=== PATIENT | female | born 1970 | race Caucasian/White ===

== ENCOUNTER → 2017-05-26 | Outpatient (CLI) | payer BC ==
--- NOTE | 2017-05-26 11:21 | RADIOLOGY REPORT (SQ) ---
EXAM DESCRIPTION: CERV SP 4 OR 5 VIEWS; EMPLOYEE COMPLETED DATE/TIME: 05/26/2017 11:14 am REASON FOR STUDY: LBP RADICULOPATHY; C AND L PAIN COMPARISON: None. NUMBER OF VIEWS: Five views. TECHNIQUE: AP, lateral, obliques and odontoid radiographic images acquired of the cervical spine. LIMITATIONS: None. FINDINGS: There is grade 1 anterolisthesis of C5 relative to C6. There is disc space narrowing and osteophyte formation C6-7. Mild neural foraminal narrowing bilaterally at C6- 7. Prevertebral soft tissues are normal. IMPRESSION: Cervical disc disease. Mild malalignment. TECHNICAL DOCUMENTATION: JOB ID: [id number] [employer]- All Rights Reserved
--- NOTE | 2017-05-26 11:21 | RADIOLOGY REPORT (SQ) ---
EXAM DESCRIPTION: CERV SP 4 OR 5 VIEWS; EMPLOYEE COMPLETED DATE/TIME: 05/26/2017 11:14 am REASON FOR STUDY: LBP RADICULOPATHY; C AND L PAIN COMPARISON: None. NUMBER OF VIEWS: Five views. TECHNIQUE: AP, lateral, obliques and odontoid radiographic images acquired of the cervical spine. LIMITATIONS: None. FINDINGS: There is grade 1 anterolisthesis of C5 relative to C6. There is disc space narrowing and osteophyte formation C6-7. Mild neural foraminal narrowing bilaterally at C6- 7. Prevertebral soft tissues are normal. IMPRESSION: Cervical disc disease. Mild malalignment. TECHNICAL DOCUMENTATION: JOB ID: [id number] [employer]- All Rights Reserved
--- NOTE | 2017-05-26 11:22 | RADIOLOGY REPORT (SQ) ---
EXAM DESCRIPTION: L SPINE WHOLE COMPLETED DATE/TIME: 05/26/2017 11:14 am REASON FOR STUDY: LBP RADICULOPATHY COMPARISON: None. NUMBER OF VIEWS: Five views including obliques. TECHNIQUE: AP, lateral, oblique, and sacral radiographic images acquired of the lumbar spine. LIMITATIONS: None. FINDINGS: MINERALIZATION: Normal. SEGMENTATION: Normal. No transitional anatomy. ALIGNMENT: Normal. VERTEBRAE: Maintained height. No fracture or worrisome bone lesion. DISCS: Preserved height. No significant osteophytes or end plate irregularity. POSTERIOR ELEMENTS: Pedicles and facets are intact. No pars defect or posterior arch defects. HARDWARE: None in the spine. PARASPINAL SOFT TISSUES: Normal. PELVIS: Intact as visualized. No fractures or worrisome bone lesions. SI joints intact. OTHER: No other significant finding. IMPRESSION: NORMAL 5 VIEW LUMBAR SPINE. TECHNICAL DOCUMENTATION: JOB ID: [id number] [employer]- All Rights Reserved
== END ==
LOC: RAD 10:44
PROVIDERS: ATTEND Nurse Practitioner Primary Care
DX: M50.823 Other cervical disc disorders at C6-C7 level (principal); M54.5 Low back pain; M54.10 Radiculopathy, site unspecified
CPT/HCPCS: 72050; 72110

== ENCOUNTER → 2017-06-20 | Outpatient (CLI) | payer BC ==
[2017-06-20 11:02] LABS: HEMATOCRIT 37.9 % (36.0-47.0); HEMOGLOBIN 12.6 g/dL (12.0-15.5); MEAN CORPUSCULAR HEMOGLOBIN 29.4 pg (27.0-33.4); MEAN CORPUSCULAR HGB CONC 33.3 g/dL (32.0-36.0); MEAN CORPUSCULAR VOLUME 88 fl (80-97); PLATELET COUNT 265 10^3/uL (150-450); RED CELL DISTRIBUTION WIDTH 14.9 % (11.5-14.0); WHITE BLOOD COUNT 5.1 10^3/uL (4.0-10.5)
[2017-06-20 11:27] LABS: ALANINE AMINOTRANSFERASE 25 U/L (9-52); ALBUMIN 4.2 g/dL (3.5-5.0); ALKALINE PHOSPHATASE 36 U/L (38-126); ANION GAP 8 (5-19); ASPARTATE AMINO TRANSFERASE 17 U/L (14-36); BILIRUBIN,DIRECT 0.3 mg/dL (0.0-0.4); BILIRUBIN,TOTAL 0.3 mg/dL (0.2-1.3); BLOOD UREA NITROGEN 16 mg/dL (7-20); CALCIUM 9.4 mg/dL (8.4-10.2); CARBON DIOXIDE 25 mmol/L (22-30); CHLORIDE 106 mmol/L (98-107); CHOLESTEROL 187.61 mg/dL (0-200); GLUCOSE 99 mg/dL (75-110); POTASSIUM 4.1 mmol/L (3.6-5.0); SODIUM 138.5 mmol/L (137-145); TOTAL PROTEIN 6.7 g/dL (6.3-8.2); TRIGLYCERIDES 40 mg/dL (<150)
[2017-06-20 11:38] LABS: DIRECT LDL 96 mg/dL (<100)
== END ==
LOC: LAB 10:44
PROVIDERS: ATTEND Nurse Practitioner Primary Care
DX: E66.9 Obesity, unspecified (principal); F32.9 Major depressive disorder, single episode, unspecified; R53.83 Other fatigue; R51 Headache
CPT/HCPCS: 36415; 80053; 80061; 82306; 83036; 84443; 85027

== ENCOUNTER → 2018-03-20 | Outpatient (CLI) | payer BC ==
[2018-03-20 16:13] LABS: HEMATOCRIT 34.3 % (36.0-47.0); HEMOGLOBIN 11.2 g/dL (12.0-15.5); MEAN CORPUSCULAR HEMOGLOBIN 27.3 pg (27.0-33.4); MEAN CORPUSCULAR HGB CONC 32.8 g/dL (32.0-36.0); MEAN CORPUSCULAR VOLUME 83 fl (80-97); PLATELET COUNT 388 10^3/uL (150-450); RED BLOOD COUNT 4.12 10^6/uL (3.72-5.28); RED CELL DISTRIBUTION WIDTH 18.3 % (11.5-14.0); WHITE BLOOD COUNT 6.8 10^3/uL (4.0-10.5)
[2018-03-20 16:17] LABS: APPEARANCE,URINE SLIGHTLY-CLOUDY; BILIRUBIN,URINE NEGATIVE (NEGATIVE); COLOR,URINE YELLOW; GLUCOSE, URINE NEGATIVE (NEGATIVE); KETONES,URINE TRACE mg/dL (NEGATIVE); LEUKOCYTE ESTERASE,URINE NEGATIVE (NEGATIVE); NITRITE,URINE NEGATIVE (NEGATIVE); PROTEIN,URINE NEGATIVE (NEGATIVE); URINE SPECIFIC GRAVITY 1.016; UROBILINOGEN,URINE NEGATIVE mg/dL (<2.0)
[2018-03-20 16:53] LABS: ERYTHROCYTE SEDIMENTATION RATE 8 mm/hr (0-20)
== END ==
LOC: LAB 15:44
PROVIDERS: ATTEND Internal Medicine
DX: M13.0 Polyarthritis, unspecified (principal)
CPT/HCPCS: 36415; 81001; 85027; 85652; 86140; 86200; 86225; 86235; 86430

== ENCOUNTER → 2018-08-30 | Outpatient (CLI) | payer BC | LOC: LAB 10:53 | PROVIDERS: ATTEND Obstetrics & Gynecology | DX: I73.00 Raynaud's syndrome without gangrene (principal) | CPT/HCPCS: 36415; 85652; 86038; 86430 ==

== ENCOUNTER 2019-01-02 10:07 | Day surgery (SDC) | payer BC ==
[2018-12-30 10:57] LABS: APPEARANCE,URINE CLEAR; BILIRUBIN,URINE NEGATIVE (NEGATIVE); COLOR,URINE YELLOW; GLUCOSE, URINE NEGATIVE (NEGATIVE); KETONES,URINE TRACE mg/dL (NEGATIVE); LEUKOCYTE ESTERASE,URINE NEGATIVE (NEGATIVE); NITRITE,URINE NEGATIVE (NEGATIVE); PROTEIN,URINE NEGATIVE (NEGATIVE); URINE SPECIFIC GRAVITY 1.025; UROBILINOGEN,URINE NEGATIVE mg/dL (<2.0)
[2018-12-30 11:01] LABS: HEMATOCRIT 35.4 % (36.0-47.0); HEMOGLOBIN 11.4 g/dL (12.0-15.5); MEAN CORPUSCULAR HEMOGLOBIN 26.9 pg (27.0-33.4); MEAN CORPUSCULAR HGB CONC 32.3 g/dL (32.0-36.0); MEAN CORPUSCULAR VOLUME 83 fl (80-97); PLATELET COUNT 346 10^3/uL (150-450); RED BLOOD COUNT 4.25 10^6/uL (3.72-5.28); RED CELL DISTRIBUTION WIDTH 15.5 % (11.5-14.0); WHITE BLOOD COUNT 5.2 10^3/uL (4.0-10.5)
[2018-12-30 11:22] LABS: ALBUMIN 4.2 g/dL (3.5-5.0); ALKALINE PHOSPHATASE 37 U/L (38-126); ANION GAP 8 (5-19); ASPARTATE AMINO TRANSFERASE 30 U/L (14-36); BILIRUBIN,DIRECT 0.1 mg/dL (0.0-0.4); BILIRUBIN,TOTAL 0.4 mg/dL (0.2-1.3); BLOOD UREA NITROGEN 15 mg/dL (7-20); CALCIUM 9.2 mg/dL (8.4-10.2); CARBON DIOXIDE 26 mmol/L (22-30); CHLORIDE 103 mmol/L (98-107); GLUCOSE 99 mg/dL (75-110); POTASSIUM 3.9 mmol/L (3.6-5.0); TOTAL PROTEIN 6.7 g/dL (6.3-8.2)
--- NOTE | 2018-12-30 14:44 | EKG REPORT ---
SEVERITY:- NORMAL ECG - SINUS RHYTHM : Confirmed by: Emmy Silva MD 30-Dec-2018 14:44:07
[~2019-01-02 10:07] MED LIST: CEFAZOLIN 1 GM/D5W RTU 1 GM/50 ML RTUPB IV ONE; CEFAZOLIN 1 GM/D5W RTU 1 GM/50 ML RTUPB IV PRN; LACTATED RINGERS 1000 ML IV PRN; LIDOCAINE 0.5% INJ-PF (5 MG/ML) 50 ML SDV SUBCUT PRN
[2019-01-02] MEDS ORDERED: MIDAZOLAM 2 MG/2 ML INJ IV ONE (10:45)
[2019-01-02] MEDS: MIDAZOLAM 2 MG/2 ML INJ ONE ×2 (11:05→11:40)
[2019-01-02] MEDS ORDERED: SCOPOLAMINE HYDROBROMIDE 1.5 MG PATCH.TD72 ONE (11:23)
[2019-01-02] MEDS ORDERED: FENTANYL CITRATE INJ/PF 100 MCG/2 ML AMPUL ONE (11:23)
[2019-01-02] MEDS ORDERED: PROPOFOL INJ 200 MG/20 ML VIAL IV ONE (11:23)
[2019-01-02] MEDS ORDERED: MIDAZOLAM 2 MG/2 ML INJ ONE (11:23)
[2019-01-02] MEDS ORDERED: LIDOCAINE 1% INJ-PF (10 MG/ML) 30 ML SDV ONE (11:35)
[2019-01-02] MEDS ORDERED: PROMETHAZINE HCL INJ 25 MG/1 ML VIAL IV PRN ×2 (12:10→14:19)
[2019-01-02] MEDS ORDERED: ONDANSETRON HCL INJ/PF 4 MG/2 ML SDV IV PRN (12:10)
[2019-01-02] MEDS ORDERED: MORPHINE SULFATE 10 MG/ML INJ IV PRN (12:10)
[2019-01-02] MEDS ORDERED: FENTANYL CITRATE INJ/PF 100 MCG/2 ML AMPUL IV PRN ×3 (12:10)
[2019-01-02] MEDS ORDERED: MEPERIDINE HCL/PF INJ 25 MG/1 ML DISP.SYRIN IV PRN (12:10)
[2019-01-02] MEDS ORDERED: DIPHENHYDRAMINE HCL 50 MG/ML VIAL IV PRN (12:10)
[2019-01-02] MEDS ORDERED: OXYCODONE-ACETAMINOPHEN 5-325 MG TABLET PO PRN ×4 (12:10→13:33)
[2019-01-02] MEDS: FENTANYL CITRATE INJ/PF 100 MCG/2 ML AMPUL ONE ×2 (12:51→13:05)
[2019-01-02] MEDS ORDERED: PROMETHAZINE HCL INJ 25 MG/1 ML VIAL ONE (13:00)
[2019-01-02] MEDS ORDERED: DIPHENHYDRAMINE HCL 50 MG/ML VIAL ONE (13:37)
[2019-01-02] MEDS ORDERED: DEXAMETHASONE SOD PHOSPHATE INJ 4 MG/1 ML VIAL ONE (14:27)
[2019-01-02] MEDS ORDERED: LIDOCAINE 2% INJ-PF (20 MG/ML) 2 ML AMPUL ONE (14:27)
[2019-01-02] MEDS ORDERED: ONDANSETRON HCL INJ/PF 4 MG/2 ML SDV ONE (14:27)
[2019-01-02] MEDS ORDERED: KETOROLAC TROMETHAMINE 60 MG/2 ML SDV ONE (14:27)
[2019-01-02 15:04] VITALS: BP 164/100
--- NOTE | 2019-01-03 16:02 | Operative Report ---
Operative Report DATE OF SURGERY: 01/02/19 PREOPERATIVE DIAGNOSIS: Dysfunctional uterine bleeding and anemia POSTOPERATIVE DIAGNOSIS: Same OPERATION: D&C hysteroscopy [employer] SURGEON: BARNEY HARO ANESTHESIA: GA TISSUE REMOVED OR ALTERED: Endometrium COMPLICATIONS: None ESTIMATED BLOOD LOSS: Negligible INTRAOPERATIVE FINDINGS: Normal female anatomy PROCEDURE: Patient was brought into the operating room and placed on the table in a supine position. She was then inducted under general anesthesia. Patient was repositioned in a dorsal lithotomy position. The bladder was emptied of 100 cc of normal urine. A pelvic under anesthesia was then performed. A weighted vaginal speculum was then inserted. The cervix was grasped on its anterior lip with both a single-tooth tenaculum and an Allis forceps. The uterus was sounded to 8.1 cm. The cervix was then dilated with Hegar dilators. The cervical length was 4 cm. A suction curette was then gently inserted through the cervix until the fundus was reached. Gently rotating the curette it was gradually removed. This accomplished the D&C. The hysteroscope was then flushed with normal saline and gently inserted through the cervical canal. The endometrial cavity was then visualized with normal findings. NovaSure equipment was then removed and gently inserted through the cervical os until the fundus was reached the NovaSure was then opened up giving us a cavity width of 4.2 cm and a power setting of 95 the plunger was placed f orward the NovaSure was moved north[place]south [place] x3 and then the equipment was empowered this terminated procedure the NovaSure was closed and removed from the endometrial cavity. Hysteroscope was then reinserted through the cervical os and the endometrial cavity was visualized. There was a good burn. This terminated the procedure. Anesthesia was discontinued. Patient was placed back in the supine position and transferred to the recovery room in satisfactory condition.
== END 2019-01-02 15:08 | disposition home or self-care (01) ==
LOC: OROUT 10:07
PROVIDERS: ATTEND Obstetrics & Gynecology
DX: N93.8 Other specified abnormal uterine and vaginal bleeding (principal); N92.1 Excessive and frequent menstruation with irregular cycle; D64.9 Anemia, unspecified
CPT/HCPCS: 93005; 36415; 85027; 81025; 80053; 81001; 88305 ×2; 93010; 00952; 58563; J2250; J0690; J1100; J1200; J1885; J3010; J2550; J2405; J2704; J3490; 952